=== PATIENT | female | born 1980 | race Caucasian/White ===

== ENCOUNTER → 2017-12-06 | Outpatient (CLI) | payer BC ==
[2017-12-06 11:49] LABS: ADD MAN DIFF? NO
[2017-12-06 11:52] LABS: WHITE BLOOD COUNT 8.9 10^3/ul (4.8-10.8)
[2017-12-06 11:52] LABS: BASOPHILS % 0.2 % (0.0-2.0); EOSINOPHILS % 0.3 % (0.0-7.0); HEMATOCRIT 39.7 % (37.0-47.0); HEMOGLOBIN 13.2 g/dl (12.0-16.0); LYMPHOCYTES % 22.9 % (15.0-51.0); MEAN CORPUSCULAR HEMOGLOBIN 27.8 pg (29.0-33.0); MEAN CORPUSCULAR HGB CONC 33.2 g/dl (32.0-37.0); MEAN CORPUSCULAR VOLUME 83.8 fl (82.0-101.0); MEAN PLATELET VOLUME 10.3 fl (7.4-10.4); MONOCYTE # 0.6 10^3/ul (0.3-0.9); MONOCYTES % 6.8 % (0.0-11.0); NEUTROPHIL # 6.2 10^3/ul (1.6-7.5); NEUTROPHILS % 69.5 % (39.0-77.0); PLATELET COUNT 253 10^3/UL (140-415); RED BLOOD COUNT 4.74 10^6/ul (4.20-5.40)
[2017-12-06 12:14] LABS: URIC ACID 3.8 mg/dl (3.1-7.9)
[2017-12-07 14:02] LABS: ANA SCREEN NEGATIVE (NEGATIVE)
== END | disposition home or self-care (01) ==
LOC: LAB 11:18
DX: M04.9 Autoinflammatory syndrome, unspecified (principal); L60.3 Nail dystrophy
CPT/HCPCS: 84560; 85025; 85651; 86038

== ENCOUNTER → 2018-07-30 | Outpatient (CLI) | payer BC ==
[2018-07-30 09:54] LABS: ANION GAP 13 (8-16); BLOOD UREA NITROGEN 13 mg/dl (7-20); CALCIUM 9.4 mg/dl (8.4-10.2); CARBON DIOXIDE 28 mmol/L (21-31); CHLORIDE 102 mmol/L (97-110); CHOL/HDL RATIO 3.3 RATIO; CHOLESTEROL 215 mg/dl (100-200); CREATININE 0.68 mg/dl (0.44-1.00); GLUCOSE 100 mg/dl (70-220); HDL CHOLESTEROL 64 mg/dl (34-88); LDL CHOLESTEROL,CALCULATED 125 mg/dl; POTASSIUM 4.5 mmol/L (3.5-5.1); SODIUM 138 mmol/L (135-144); TRIGLYCERIDES 128 mg/dl (0-149)
[2018-07-30 10:05] LABS: FREE T4 (FREE THYROXINE) 1.28 ng/dl (0.79-2.35)
== END | disposition home or self-care (01) ==
LOC: LAB 08:42
DX: E04.9 Nontoxic goiter, unspecified (principal); E66.9 Obesity, unspecified
CPT/HCPCS: 80048; 80061; 84439; 84443; 84481

== ENCOUNTER → 2018-10-10 | Outpatient (CLI) | payer BC | END | disposition home or self-care (01) | LOC: RAD 11:21 | DX: M54.9 Dorsalgia, unspecified (principal) ==

== ENCOUNTER → 2018-11-19 | Outpatient (CLI) | payer BC | END | disposition home or self-care (01) | LOC: RAD 09:40 | DX: S33.2XXD Dislocation of sacroiliac and sacrococcygeal joint, subsequent encounter (principal); X58.XXXD Exposure to other specified factors, subsequent encounter | CPT/HCPCS: 72202 ==

== ENCOUNTER → 2019-04-15 | Outpatient (CLI) | payer BC | END | disposition home or self-care (01) | LOC: EKG 10:39 | DX: R07.9 Chest pain, unspecified (principal) | CPT/HCPCS: 93306; 93350 ==

== ENCOUNTER → 2019-04-16 | Outpatient (CLI) | payer BC ==
[2019-04-16 13:32] LABS: ADD MAN DIFF? NO
[2019-04-16 13:34] LABS: WHITE BLOOD COUNT 11.5 10^3/ul (4.8-10.8)
[2019-04-16 13:34] LABS: BASOPHILS % 0.2 % (0.0-2.0); EOSINOPHILS % 0.3 % (0.0-7.0); HEMATOCRIT 40.9 % (37.0-47.0); HEMOGLOBIN 13.4 g/dl (12.0-16.0); LYMPHOCYTES # 2.3 10^3/ul (0.8-2.9); LYMPHOCYTES % 20.2 % (15.0-51.0); MEAN CORPUSCULAR HEMOGLOBIN 27.3 pg (29.0-33.0); MEAN CORPUSCULAR HGB CONC 32.8 g/dl (32.0-37.0); MEAN CORPUSCULAR VOLUME 83.5 fl (82.0-101.0); MEAN PLATELET VOLUME 10.2 fl (7.4-10.4); MONOCYTE # 0.9 10^3/ul (0.3-0.9); MONOCYTES % 7.7 % (0.0-11.0); NEUTROPHIL # 8.2 10^3/ul (1.6-7.5); NEUTROPHILS % 71.3 % (39.0-77.0); PLATELET COUNT 293 10^3/UL (140-415); RED CELL DISTRIBUTION WIDTH 13.9 % (11.5-14.5)
[2019-04-16 13:52] LABS: ALANINE AMINOTRANSFERASE 21 IU/L (13-69); ALBUMIN 4.2 g/dl (3.3-4.9); ALBUMIN/GLOBULIN RATIO 1.13; ALKALINE PHOSPHATASE 102 IU/L (42-121); ANION GAP 9 (5-13); ASPARTATE AMINO TRANSFERASE 19 IU/L (15-46); BILIRUBIN,INDIRECT 0.5 mg/dl (0-1.1); BILIRUBIN,TOTAL 0.5 mg/dl (0.2-1.3); BLOOD UREA NITROGEN 15 mg/dl (7-20); CALCIUM 9.3 mg/dl (8.4-10.2); CARBON DIOXIDE 28 mmol/L (21-31); CHLORIDE 101 mmol/L (97-110); CREATINE KINASE 27 IU/L (23-200); CREATININE 0.66 mg/dl (0.44-1.00); Estimated GFR > 60 mL/min (>60); GLUCOSE 91 mg/dl (70-220); POTASSIUM 4.1 mmol/L (3.5-5.1); SODIUM 138 mmol/L (135-144); TOTAL PROTEIN 7.9 g/dl (6.1-8.1)
[2019-04-16 13:59] LABS: C-REACTIVE PROTEIN HIGH SENSI 0.39 mg/dl (0.00-0.74)
[2019-04-16 14:08] LABS: PARATHYROID HORMONE 55.4 pg/ml (24.0-73.0)
[2019-04-16 14:12] LABS: FREE T4 (FREE THYROXINE) 1.39 ng/dl (0.64-1.79)
[2019-04-16 14:27] LABS: THYROID STIMULATING HORMONE 0.953 MIU/L (0.465-4.680)
[2019-04-16 14:44] LABS: ERYTHROCYTE SEDIMENTATION RATE 30 mm/Hr (0-20)
[2019-04-16 15:11] LABS: RHEUMATOID FACTOR NEGATIVE (NEGATIVE)
[2019-04-18 13:31] LABS: MYELOPEROXIDASE ANTIBODY <1.0 AI; PROTEINASE-3 ANTIBODY <1.0 AI
[2019-04-18 15:06] LABS: ANCA SCREEN NEGATIVE (NEGATIVE)
[2019-04-18 15:56] LABS: ANA SCREEN NEGATIVE (NEGATIVE)
[2019-04-18 18:17] LABS: ANTI-DNA (DOUBLE STRANDED) <95 U/mL (< 301)
[2019-04-19 19:11] LABS: CYCLIC CITRULLINATED PEP IGG <16 UNITS
== END | disposition home or self-care (01) ==
LOC: LAB 13:04
DX: M19.90 Unspecified osteoarthritis, unspecified site (principal)
CPT/HCPCS: 80053; 82306; 82550; 82607; 83970; 84439; 84443; 85025; 85651; 86021; 86038; 86140; 86200; 86226; 86235; 86430

== ENCOUNTER → 2019-05-19 | Outpatient (CLI) | payer BC ==
[2019-05-19 11:12] LABS: ANION GAP 8 (5-13); BLOOD UREA NITROGEN 14 mg/dl (7-20); CALCIUM 8.7 mg/dl (8.4-10.2); CARBON DIOXIDE 25 mmol/L (21-31); CHLORIDE 108 mmol/L (97-110); CHOL/HDL RATIO 3.3 RATIO; CHOLESTEROL 165 mg/dl (100-200); CREATININE 0.56 mg/dl (0.44-1.00); Estimated GFR > 60 mL/min (>60); GLUCOSE 99 mg/dl (70-220); HDL CHOLESTEROL 49 mg/dl (34-88); LDL CHOLESTEROL,CALCULATED 90 mg/dl; POTASSIUM 4.2 mmol/L (3.5-5.1); SODIUM 141 mmol/L (135-144); TRIGLYCERIDES 129 mg/dl (0-149)
== END | disposition home or self-care (01) ==
LOC: LAB 10:34
DX: I10 Essential (primary) hypertension (principal)
CPT/HCPCS: 80048; 80061; 83735